=== PATIENT | male | born 1980 | race Caucasian/White ===

== ENCOUNTER 2018-08-02 16:33 | Emergency (ER) | payer OTHER ==
[~2018-08-02] VITALS: Ht 185.4 cm; Wt 83.9 kg
[~2018-08-02 16:33] MED LIST: AMOX TR-K CLV1 EAC3; AUGMENTIN 875875 MG PO; BACTRIM DS TAB1 EACH PO; FLONASE 0.05%50 MCG NASAL; NORCO 5-325 TA1 EACH PO; PROAIR HFA8.5 GM
[2018-08-02] MEDS ORDERED: GENTAK5 ML INTRAOCULR (17:05)
[2018-08-02 17:19] VITALS: BP 128/76
== END 2018-08-02 17:20 | disposition home or self-care (01) ==
LOC: M.ERS 16:33
DX: T15.01XA Foreign body in cornea, right eye, initial encounter (principal); J45.909 Unspecified asthma, uncomplicated; Z86.14 Personal history of Methicillin resistant Staphylococcus aureus infection; X58.XXXA Exposure to other specified factors, initial encounter; Y93.89 Activity, other specified; Y92.89 Other specified places as the place of occurrence of the external cause; Y99.8 Other external cause status